=== PATIENT | male | born 1975 | race Two or more races ===

== ENCOUNTER 2024-12-09 08:53 | Emergency (ER) | payer MEDICAID, OTHER ==
[~2024-12-09] VITALS: Ht 180.3 cm; Wt 86.4 kg
--- NOTE | 2024-12-09 10:31 | ED.PDOC ---
Eye-HPI HPI Comments 49 M presents to the ER w/ prior SHx of right knee pain and the c/c of face pain. Pt reports on having left sided facial swelling for the past 2 days for which is associated by dental pain that is rated as moderate. Takes Tylenol with some improvement. Denies any trauma/fall. Chief Complaint: Face pain Time Seen by MD: 10:15 Primary Care Provider: RUBEN Reviewed Notes: Nurses Notes, Medications, Allergies Allergies: Coded Allergies: NO KNOWN ALLERGIES (Unverified , 12/09/24) Home Meds Active Scripts Methylprednisolone (Medrol Dosepak) 4 Mg Robin, 4 MG PO UD for 7 Days, #21 TAB 0 Refills UAD Prov:MED CHRISTIAN NP 12/09/24 Naproxen (Naproxen) 500 Mg Tab, 500 MG PO BIDPC for 7 Days, #14 TAB 0 Refills Prov:MED CHRISTIAN NP 12/09/24 Amoxicillin & Pot Clavulanate (AUGMENTIN TABLET) 875 Mg Tb, 875 MG PO BID for 7 Days, #14 TAB 0 Refills Prov:MED CHRISTIAN NP 12/09/24 Information Source: Patient Mode of Arrival: Ambulatory Timing: Days Duration: Since onset, Days Prehospital treatment: None Quality: Pain Lids: Normal Conjunctiva: Normal Cornea: Normal Pupils: Normal EOM: Normal Fundus: Normal Slit lamp exam: Normal Anterior chamber: Normal Mouth Location: Left Mouth: Lower, Tender, Swelling ENT Ear Exam: Normal Nose: Normal Sinuses: Normal Oropharynx: Normal Onset: Spontaneous Throat Exposed to: None History of: None Associated signs and symptoms: Tooth Pain Past Medical History PAST MEDICAL HISTORY: Denies Surgical History (Other): right knee Family History Family History: Reviewed,noncontributory to illness, Unknown Social History Smoker: Non-Smoker Alcohol: Denies ETOH Use Drugs: Denies Drug Use Lives In: Home Constitutional: denies: chills, diaphoresis, fatigue, fever, malaise, sweats, weakness, others EENTM: reports: mouth pain, mouth swelling; denies: blurred vision, double vision, ear bleeding, ear discharge, ear drainage, ear pain, ear ringing, eye pain, eye redness, hearing loss, nasal discharge, nose bleeding, nose congestion, nose pain, photophobia, tearing, throat pain, throat swelling, voice changes, others Respiratory: denies: cough, hemoptysis, orthopnea, SOB at rest, shortness of breath, SOB with excertion, stridor, wheezing, others Cardiovascular: denies: chest pain, dizzy spells, diaphoresis, Dyspnea on exertion, edema, irregular heart beat, left arm pain, lightheadedness, palpitations, PND, syncope, others Gastrointestinal: denies: abdomen distended, abdominal pain, blood streaked bowels, constipated, diarrhea, dysphagia, difficulty swallowing, hematemesis, melena, nausea, poor appetite, poor fluid intake, rectal bleeding, rectal pain, vomiting, others Genitourinary: denies: burning, dysuria, flank pain, frequency, hematuria, incontinence, penile discharge, penile sore, pain, testicle pain, testicle swelling, urgency, others Neurological: denies: dizziness, fainting, headache, left sided numbness, left sided weakness, numbness, paresthesia, pre-existing deficit, right sided numb ness, right sided weakness, seizure, speech problems, tingling, tremors, weakness, others Musculoskeletal: denies: back pain, gout, joint pain, joint swelling, muscle pain, muscle stiffness, neck pain, others Integumetry: denies: bruises, change in color, change in hair/nails, dryness, laceration, lesions, lumps, rash, wounds, others Allergic/Immunocompromised: denies: Difficulty Healing, Frequent Infections, Hives, Itching, others Hematologic/Lymphatic: denies: anemia, blood clots, easy bleeding, easy bruising, swollen glands, others Endocrine: denies: excessive hunger, excessive sweating, excessive thirst, excessive urination, flushing, intolerance to cold, intolerance to heat, unexplained weight gain, unexplained weight loss, others Psychiatric: denies: anxiety, bipolar disorder, depression, hopeless, panic disorder, schizophrenia, sleepless, suicidal, others All Other Systems: Reviewed and Negative Physical Exam General Appearance: No Apparent Distress, Normal HEENT: Normal ENT Inspection, Pharynx Normal, TMs Normal, Other (left sided swelling, TTP to the frontal/mexillary sinuses, uvulamidline no airway obstructions) Neck: Full Range of Motion, Non-Tender, Normal, Normal Inspection Respiratory: Chest Non-Tender, Lungs Clear, No Accessory Muscle Use, No Resp iratory Distress, Normal Breath Sounds Cardiovascular: No Murmur, No Gallop, Regular Rate/Rhythm Breast Exam: Deferred Gastrointestinal: No Organomegaly, Non Tender, No Pulsatile Mass, Normal Bowel Sounds, Soft Genitalia: Deferred Pelvic: Deferred Rectal: Deferred Extremities: No calf tenderness, Normal capillary refill, Normal inspection, Normal range of motion, Non-tender, No pedal edema Musculoskeletal : Apperance: Normal Neurologic: Alert, parimutuel clerk II-XII nml as Tested, No Motor Deficits, Normal Affect, Normal Mood, No Sensory Deficits Cerebellar Function: Normal Reflexes: Normal Skin: Dry, Normal Color, Warm Lymphatic: No Adenopathy Was a procedure done? Was a procedure done?: No EENT DIFF Eye: Other Ear: Abrasion X-Ray, Labs, Meds, VS Vital Signs Date Time Temp Pulse Resp B/P (MAP) Pulse Ox O2 Delivery O2 Flow Rate FiO2 12/09/24 13:40 98.8 76 16 149/90 (109) 99 98.8 12/09/24 11:19 84 18 98 Room Air 12/09/24 11:19 99.0 84 18 135/74 (94) 98 99.0 12/09/24 09:19 98.8 100 17 141/88 (105) 96 98.8 Lab Test 12/09/24 10:32 12/09/24 10:30 Range/Units White Blood Count 10.4 4.4-10.8 10^3/uL Red Blood Count 4.96 4.5-5.90 10^6/uL Hemoglobin 15.5 13.5-17.5 g/dL Hematocrit 44.9 41.0-53.0 % Mean Corpuscular Volume 90.4 80.0-100.0 fL Mean Corpuscular Hemoglobin 31.3 28.0-32.0 pg Mean Corpuscular Hemoglobin Concent 34.6 32.0-36.0 g/dL Red Cell Distribution Width 15.7 H 11.8-14.3 % Platelet Count 178 140-450 10^3/uL Mean Platelet Volume 8.3 6.9-10.8 fL Neutrophils (%) (Auto) 77.6 37.0-80.0 % Lymphocytes (%) (Auto) 10.3 10.0-50.0 % Monocytes (%) (Auto) 11.7 0.0-12.0 % Eosinophils (%) (Auto) 0.2 0.0-7.0 % Basophils (%) (Auto) 0.2 0.0-2.0 % Neutrophils # (Auto) 8.1 1.6-8.6 10 ^3/uL Lymphocytes # (Auto) 1.1 0.4-5.4 10 ^3/uL Monocytes # (Auto) 1.2 0-1.3 10 ^3/uL Eosinophils # (Auto) 0 0-0.8 10 ^3/uL Basophils # (Auto) 0 0-0.2 10 ^3/uL Nucleated Red Blood Cells 0.0 % Sodium Level 141 136-145 mmol/L Potassium Level 4.1 3.5-5.1 mmol/L Chloride Level 104 98-107 mmol/L Carbon Dioxide Level 27 20-31 mmol/L Anion Gap 10 5-15 Blood Urea Nitrogen 16 9-23 mg/dL Creatinine 1.17 0.700-1.30 mg/dL Glomerular Filtration Rate Calc 77 >90 mL/min BUN/Creatinine Ratio 13.7 10.0-20.0 Serum Glucose 104 74-106 mg/dL Lactic Acid Level 1.5 0.4-2.0 mmol/L Calcium Level 10.7 H 8.7-10.4 mg/dL Urine Color Yellow Yellow Urine Clarity Clear Clear Urine pH 6.0 5.0-9.0 Urine Specific Hewlett 1.020 1.001-1.035 Urine Protein Negative Negative Urine Ketones Negative Negative Urine Blood Negative Negative /uL Urine Nitrite Negative Negative Urine Bilirubin Negative Negative Urine Urobilinogen Normal Negative mg/dL Urine Leukocyte Esterase Negative Negative /uL Urine RBC 1 0 - 3 /hpf Urine Microscopic WBC 1 0-3 /HPF Urine Squamous Epithelial Cells Few <5 /hpf Urine Bacteria None seen None Seen /hpf Urine Glucose Normal Normal mg/dL Current Medications Medications (Trade) Dose Ordered Sig/Keesha Route Start Time Stop Time Status Last Admin Ceftriaxone Sodium 50 ml @ 100 mls/hr ONCE ONCE IV 12/09/24 10:30 12/09/24 10:59 DC 12/09/24 12:11 Dexamethasone Sodium Phosphate (Decadron Injection) 16 mg ONCE ONCE IM 12/09/24 13:00 12/09/24 13:01 DC 12/09/24 13:51 Ketorolac Tromethamine (Toradol Injection) 60 mg ONCE ONCE IM 12/09/24 13:00 12/09/24 13:01 DC 12/09/24 13:52 PATIENT: ALEXIA ANGELAT: [id number]: [id number] : 1975 LOC: ER ROOM / BED: / AGE / SEX: 49 / M ADM STATUS: REG ER SERVICE [id number] ORDERING PHYSICIAN: MED CHRISTIAN NP PROCEDURE(s): FACIC - MAXILLOFACIAL WITH REASON: L facical swelling. R/o abscess formation ORDER NUMBER(s): [id number], ACCESSION NUMBER(s): [id number] HISTORY: L facical swelling. R/o abscess formation TECHNIQUE: Nonenhanced axial images through the facial bones with coronal and sagittal MPR. Radiation Dose Information: CT Dose: CTDI volume is 66.97 mGy. Dose-length product is mGy*cm COMPARISON: None FINDINGS: Mandible: Multiple diffuse periapical lucencies are present. Maxilla: Multiple diffuse periapical lucencies. Zygomatic arches: Unremarkable Nasal bone: Unremarkable Orbits: Unremarkable Sinuses: Clear Facial swelling: Moderate to severe Diffuse left facial soft-tissue swelling most prominent at the left mandible. Small left anterior periapical abscess measuring 0.4 cm possibly associated with the 2nd and 3rd left anterior most maxillary teeth. IMPRESSION: Diffuse dental disease. Moderate to severe diffuse left facial soft-tissue swelling most prominent at the left mandible. Small left anterior periapical abscess measuring 0.4 cm possibly associated with the 2nd and 3rd left anterior most maxillary teeth. X-Ray, Labs, Meds, VS Comment 49M presents to the ER w/ prior SHx of right knee pain and the c/c of face pain. Patient arrives alert and oriented, ABC's intact, afebrile, vital signs stable, saturating well in room air Peripheral IV insertion+ labs were ordered. CBC was ordered to exclude anemia, blood loss, or infection. BMP was ordered to exclude electrolyte abnormalities, renal failure, dehydration, hyperglycemia Urinalysis was ordered to rule out UTI or hematuria. Diagnostic imaging ordered by me and results interpreted by radiology : Maxillar facial CT w/ contrast IMPRESSION: Diffuse dental disease. Moderate to severe diffuse left facial soft-tissue swelling most prominent at the left mandible. Small left anterior periapical abscess measuring 0.4 cm possibly associated with the 2nd and 3rd left anterior most maxillary teeth. Labs in the ED were reassuring Afebrile, vitals within normal limits. Exam as above and airway fully patent and in no respiratory distress. The patient has no neck swelling, no dysphonia or hoarseness, no lymphadenopathy. No trismus or swollen tongue to suggest Tom's angina. No overt e/o peritonsillar abscess or retropharyngeal abscess. No overt e/o deep space infection; nontoxic appearing and tolerating PO. Non-focal neuro exam with low suspicion for Lemierres. No pain with percussion. No mastoid tenderness so do not suspect mastoiditis and no pain with manipulation of ear to suggest otitis externa. Trial antibiotics with cautious return precautions discussed w/ full understanding. On reevaluation, patient had symptomatic improvement. Patient is stable for discharge at this time. External notes reviewed. Test results and diagnostic imaging interpreted. All diagnostic findings, discharge care, education and instructions provided Follow-up with PCP in 2 to 3 days Patient verbalized understanding and agreed to treatment plan Vital signs stable, afebrile, no acute distress noted Patient ambulatory with strong steady gait Advised to return precautions for any new or worsening symptoms, return to ER immediately for re-evaluation Patient is aware that the purpose of this visit was for an acute medical emergency requiring emergent stabilization. Chronic conditions, including malignancies have not been ruled out. Patient is instructed to follow up with PCP as directed and discharge instructions for continued care and workup. If unable to arrange follow-up, patient is to return to the emergency department for reassessment. Patient (parent or legal guardian if applicable) was given verbal and written discharge instructions and acknowledges understanding. Additional MDM Review of External, Non-ED records: External records reviewed. Discussion with independent historian (EMS, family) history obtained from the patient/parents (if applicable) at bedside Chronic conditions affecting care: None Social determinants of health affecting care: None Consideration of admission (observation or admission): I considered escalation of care to admission for this patient, however given the reassuring workup, the patient is safe for outpatient management. Discussion with the Radiology: No Tests considered but not performed: Prescription medication considered but not given: Time of 1ST Reevaluation: 10:45 Reevaluation 1ST: Unchanged Time of 2ND Reevaluation: 14:00 Reevaluation 2ND: Improved Patient Education/Counseling: Diagnosis, Treatment, Prognosis Family Education/Counseling: No Family Present SEPSIS Sepsis Screen Date sepsis recognized/suspect: Dec 09, 2024 Time Sepsis recognized/suspect: 0853 Recent Procedure: No On Antibiotic Therapy: No Respiratory Rate >20: No Heart Rate >90: No Temp<36 C (96.8 F) or >38.3 C: No SBP <90 or MAP <65 mmHG: No New Acute Mental Status Change: No Is the patient on CPAP, BIPAP,: No Physician Orders Heplock Iv (12/09/24 ) Maxillofacial With (12/09/24 10:28) Vital Signs Date Time Temp Pulse Resp B/P (MAP) Pulse Ox O2 Delivery O2 Flow Rate FiO2 12/09/24 13:40 98.8 76 16 149/90 (109) 99 98.8 12/09/24 11:19 84 18 98 Room Air 12/09/24 11:19 99.0 84 18 135/74 (94) 98 99.0 12/09/24 09:19 98.8 100 17 141/88 (105) 96 98.8 Laboratory Tests Test 12/09/24 10:32 Lactic Acid Level 1.5 mmol/L (0.4-2.0) White Blood Count 10.4 10^3/uL (4.4-10.8) Departure 1 Departure Time of Disposition: 14:36 Impression: Primary Impression: Facial swelling Additional Impression: Dental caries Disposition: HOME / SELF CARE / HOMELESS Condition: Stable e-Prescriptions Methylprednisolone (Medrol Dosepak) 4 Mg Robin 4 MG PO UD for 7 Days, #21 TAB 0 Refills UAD Prov: MED CHRISTIAN [employer] OFFICE MANAGER 12/09/24 Naproxen (Naproxen) 500 Mg Tab 500 MG PO BIDPC for 7 Days, #14 TAB 0 Refills Prov: MED CHRISTIAN [employer] OFF[employer] MANAGER 12/09/24 Amoxicillin & Pot Clavulanate (AUGMENTIN TABLET) 875 Mg Tb 875 MG PO BID for 7 Days, #14 TAB 0 Refills Prov: MED CHRISTIAN [employer] OFF[employer] MANAGER 12/09/24 Critical Care Note Critical Care Time?: No Stability Stability form required: No Heart Score Heart Score: Heart Score Response (Comments) Value History N/A 0 EKG N/A 0 Age N/A 0 Risk Factors N/A 0 Troponin N/A 0 Total 0 I personally scribed for MED CHRISTIAN NP ([email or web address]) on 12/09/24 at 10:31. Electronically submitted by Lanre Seals ([email or web address]). MED CHRISTIAN NP Dec 09, 2024 10:31
[2024-12-09 10:56] LABS: Hematocrit 44.9 % (41.0-53.0); Hemoglobin 15.5 g/dL (13.5-17.5); Mean Corpuscular Hemoglobin 31.3 pg (28.0-32.0); Mean Corpuscular Volume 90.4 fL (80.0-100.0); Nucleated Red Blood Cells % 0.0 %
[2024-12-09 11:03] LABS: Chloride 104 mmol/L (98-107); Potassium 4.1 mmol/L (3.5-5.1); Sodium 141 mmol/L (136-145)
[2024-12-09 11:04] LABS: Anion Gap 10 (5-15); Carbon Dioxide 27 mmol/L (20-31)
[2024-12-09 11:09] LABS: Glucose 104 mg/dL (74-106)
[2024-12-09 11:10] LABS: BUN/Creatinine Ratio 13.7 (10.0-20.0); Blood Urea Nitrogen 16 mg/dL (9-23)
[2024-12-09 11:12] LABS: Calcium 10.7 mg/dL (8.7-10.4)
[2024-12-09 11:50] LABS: Urine Protein, UAD Negative (Negative)
[2024-12-09] MEDS: IOHEXOL 300 MG/ML 100ML BOTTLE IJ ONE (11:58)
[2024-12-09] MEDS: cefTRIAXone 1GM/50ML D5W 50 ML IV ONE (12:11)
--- NOTE | 2024-12-09 12:44 | DVH ---
HISTORY: L facical swelling. R/o abscess formation TECHNIQUE: Nonenhanced axial images through the facial bones with coronal and sagittal MPR. Radiation Dose Information: CT Dose: CTDI volume is 66.97 mGy. Dose-length product is mGy*cm COMPARISON: None FINDINGS: Mandible: Multiple diffuse periapical lucencies are present. Maxilla: Multiple diffuse periapical lucencies. Zygomatic arches: Unremarkable Nasal bone: Unremarkable Orbits: Unremarkable Sinuses: Clear Facial swelling: Moderate to severe Diffuse left facial soft-tissue swelling most prominent at the l eft mandible. Small left anterior periapical abscess measuring 0.4 cm possibly associated with the 2nd and 3rd left anterior most maxillary teeth. IMPRESSION: Diffuse dental disease. Moderate to severe diffuse left facial soft-tissue swelling most prominent at the left mandible. Small left anterior periapical abscess measuring 0.4 cm possibly associated with the 2nd and 3rd left anterior most maxillary teeth.
[2024-12-09 13:40] VITALS: BP 149/90; PULSE 76; RESP 16; TEMP 98.8; O2SAT 99
[2024-12-09] MEDS: KETOROLAC TROMETH 60MG/2ML VIAL IM ONE (13:52)
[2024-12-09] MEDS ORDERED: NAPR-746 PO (14:37)
[2024-12-09] MEDS ORDERED: AUG875T PO (14:37)
[2024-12-09] MEDS ORDERED: METH4PAK PO (14:37)
== END 2024-12-09 14:49 | disposition home or self-care (01) ==
LOC: ER 08:57
DX: K02.9 Dental caries, unspecified (principal); R22.0 Localized swelling, mass and lump, head
CPT/HCPCS: 36415; 70487; 80048; 81001; 83605; 85025; 96365; 96372; 99285; J0696; J1100; J1885; Q9967